=== PATIENT | female | born 1955 | race Caucasian/White ===

== ENCOUNTER 2022-10-07 21:28 | Emergency (ER) | payer OTHER ==
[~2022-10-07] VITALS: Ht 167.6 cm; Wt 80.6 kg
[2022-10-08] MEDS ORDERED: MORPHINE 2 MG/ML 1ML VIAL IV PRN (00:20)
[2022-10-08] MEDS ORDERED: PERC5TAB12 PO (01:10)
[2022-10-08] MEDS ORDERED: OXYCODONE/APAP 5MG/325MG(HOME DOSE PACK) PO ONE (01:15)
[2022-10-08] MEDS ORDERED: PERCOCET 5MG/325MG TAB PO ONE (01:15)
[2022-10-08 02:07] VITALS: BP 136/82
== END 2022-10-08 02:11 | disposition home or self-care (01) ==
LOC: M ED 21:28
DX: S52.502A Unspecified fracture of the lower end of left radius, initial encounter for closed fracture (principal); W00.0XXA Fall on same level due to ice and snow, initial encounter; I10 Essential (primary) hypertension

== ENCOUNTER → 2025-08-29 | Outpatient (CLI) | payer MEDICAID ==
[~2025-08-29] MED LIST: PERC5TAB12 PO
== END ==
LOC: M RAD 11:01
PROVIDERS: ATTEND Nurse Practitioner
DX: I83.813 Varicose veins of bilateral lower extremities with pain (principal)